=== PATIENT | male | born 2000 | race African-American/Black ===

== ENCOUNTER 2021-05-07 01:56 | Emergency (ER) | payer SELFPAY ==
[~2021-05-07] VITALS: Ht 175.3 cm; Wt 84.1 kg
[2021-05-07 02:16] VITALS: BP 128/69
--- NOTE | 2021-05-07 02:24 | PHYS DOC ---
General Adult EDM: Chief Complaint: LOWER EXTREMITY SWELLING HPI: HPI: 21-year-old male presents via EMS with leg sores. The patient feels like he is getting bit by flies a lot. He is homeless. He tells me that he has not showered in a while and has not been taking care of his legs. He has known eczema. He had infections at one point but they are getting better. He is not taking any medications at this time. He has requested to take a shower and to get some clothes. Review of Systems: Review of Systems: Constitutional: Denies fever or chills Eyes: Denies change in visual acuity HENT: Denies nasal congestion or sore throat Respiratory: Denies cough or shortness of breath Cardiovascular: Denies chest pain or edema GI: Denies abdominal pain, nausea, vomiting, bloody stools or diarrhea : Denies dysuria Musculoskeletal: Denies back pain or joint pain Integument: Insect bites lower legs Neurologic: Denies headache, focal weakness or sensory changes Endocrine: Denies polyuria or polydipsia Lymphatic: Denies swollen glands Psychiatric: Denies depression or anxiety Allergies: Allergies: Allergies Coded Allergies Type Severity Reaction Last Updated Verified No Known Drug Allergies 05/07/21 No Physical Exam: PE: Constitutional: Well developed, well nourished, disheveled, unkept, no acute distress, non-toxic appearance. [] HENT: Normocephalic, atraumatic, bilateral external ears normal, oropharynx moist, no oral exudates, nose normal. [] Eyes: PERRLA, EOMI, conjunctiva normal, no discharge. [] Neck: Normal range of motion, no tenderness, supple, no stridor. [] Cardiovascular:Heart rate regular rhythm, no murmur [] Lungs & Thorax: Bilateral breath sounds clear to auscultation [] Abdomen: Bowel sounds normal, soft, no tenderness, no masses, no pulsatile masses. [] Skin: Many insect bites of the bilateral lower extremities in various stages of healing. No obvious signs of cellulitis. Diffuse severe eczema of the bilateral lower extremities and feet [] Back: No tenderness, no CVA tenderness. [] Extremities: No tenderness, no cyanosis, no clubbing, ROM intact, bilateral nonpitting edema of the lower legs and feet. [] Neurologic: Alert and oriented X 3, normal motor function, normal sensory function, no focal deficits noted. [] Psychologic: Affect normal, judgement normal, mood normal. [] EKG: EKG: [] Radiology/Procedures: Radiology/Procedures: [] Heart Score: C/O Chest Pain: N/A Risk Factors: Risk Factors: DM, Current or recent (<one month) smoker, HTN, HLP, family history of CAD, obesity. Risk Scores: Score 0 - 3: 2.5% MACE over next 6 weeks - Discharge Home Score 4 - 6: 20.3% MACE over next 6 weeks - Admit for Clinical Observation Score 7 - 10: 72.7% MACE over next 6 weeks - Early Invasive Strategies Course & Med Decision Making: Course & Med Decision Making Pertinent Labs and Imaging studies reviewed. (See chart for details) I am not sure we have the ability to let the patient take a shower. We will give him food, close, water. I do not see any indication for antibiotics at this time. He is stable for discharge. [] Dragon Disclaimer: Dragrabia Disclaimer: This electronic medical record was generated, in whole or in part, using a voice recognition dictation system. Departure Departure: Impression: Primary Impression: Insect bite Qualified Codes: S80.869A - Insect bite (nonvenomous), unspecified lower leg, initial encounter; W57.XXXA - Bitten or stung by nonvenomous insect and other nonvenomous arthropods, initial encounter Additional Impression: Eczema Qualified Codes: L30.9 - Dermatitis, unspecified Disposition: 01 HOME / SELF CARE / HOMELESS Condition: STABLE Referrals: PCP,NO (PCP) Patient Instructions: Insect Bite, [id number] JENNIFER MASTERS DO May 07, 2021 02:24
== END 2021-05-07 03:54 | disposition home or self-care (01) ==
LOC: ER 01:56
DX: S80.862A Insect bite (nonvenomous), left lower leg, initial encounter (principal); S80.861A Insect bite (nonvenomous), right lower leg, initial encounter; L30.9 Dermatitis, unspecified; W57.XXXA Bitten or stung by nonvenomous insect and other nonvenomous arthropods, initial encounter; Y93.89 Activity, other specified; Y92.89 Other specified places as the place of occurrence of the external cause; Y99.8 Other external cause status
CPT/HCPCS: 99283

== ENCOUNTER 2021-07-14 05:58 | Emergency (ER) | payer SELFPAY ==
[~2021-07-14] VITALS: Ht 175.3 cm; Wt 83.6 kg
--- NOTE | 2021-07-14 06:22 | PHYS DOC ---
Past History Past Surgical History: Other Additional Past Surgical Histo: EYE SX (JENNIFER MASTERS DO) Alcohol Use: None (JENNIFER MASTERS DO) General Adult EDM: Chief Complaint: ALTERED MENTAL STATUS HPI: HPI: 21-year-old male presents via EMS with concern for psychiatric condition. The patient was found by police to [place] the [place] in dark clothing. The police thought the patient may have psychiatric issues and requested he be brought to the emergency room for evaluation. The patient tells me that he is feeling well. He was out walking with no particular intention. He states that he was compelled to come back to [place]. He is homeless. He has been living in the [place] area. He denies alcohol or drug use. He denies homicidal or suicidal ideation. No fever or chills. (JENNIFER MASTERS DO) Review of Systems: Review of Systems: Constitutional: Denies fever or chills Eyes: Denies change in visual acuity HENT: Denies nasal congestion or sore throat Respiratory: Denies cough or shortness of breath Cardiovascular: Denies chest pain or edema GI: Denies abdominal pain, nausea, vomiting, bloody stools or diarrhea : Denies dysuria Musculoskeletal: Denies back pain or joint pain Integument: Denies rash Neurologic: Denies headache, focal weakness or sensory changes Endocrine: Denies polyuria or polydipsia Lymphatic: Denies swollen glands Psychiatric: Denies depression or anxiety (JENNIFER MASTERS DO) Current Medications: Current Meds: Current Medications Medications (Trade) Dose Ordered Sig/Linda Start Time Stop Time Status Last Admin Dose Admin Sodium Chloride 1,000 ml @ 1,000 mls/hr 1X ONCE 07/14/21 06:30 07/14/21 07:29 (JENNIFER MASTERS DO) Allergies: Allergies: Allergies Coded Allergies Type Severity Reaction Last Updated Verified No Known Drug Allergies 05/07/21 No (JENNIFER MASTERS DO) Physical Exam: PE: Constitutional: Well developed, well nourished, no acute distress, non-toxic appearance. [] HENT: Normocephalic, atraumatic, bilateral external ears normal, oropharynx mo ist, no oral exudates, nose normal. [] Eyes: PERRLA, EOMI, conjunctiva normal, no discharge. [] Neck: Normal range of motion, no tenderness, supple, no stridor. [] Cardiovascular: Heart rate regular rhythm, no murmur [] Lungs & Thorax: Bilateral breath sounds clear to auscultation [] Abdomen: Bowel sounds normal, soft, no tenderness, no masses, no pulsatile masses. [] Skin: Warm, dry, no erythema, eczema [] Back: No tenderness, no CVA tenderness. [] Extremities: No tenderness, no cyanosis, no clubbing, ROM intact, no edema. [] Neurologic: Alert and oriented X 3, normal motor function, normal sensory function, no focal deficits noted. [] Psychologic: Affect normal, compulsions, mood normal. [] (JENNIFER MASTERS DO) EKG: EKG: [] (JENNIFER MASTERS DO) Radiology/Procedures: Radiology/Procedures: [] (JENNIFER MASTERS DO) Heart Score: C/O Chest Pain: N/A Risk Factors: Risk Factors: DM, Current or recent (<one month) smoker, HTN, HLP, family history of CAD, obesity. Risk Scores: Score 0 - 3: 2.5% MACE over next 6 weeks - Discharge Home Score 4 - 6: 20.3% MACE over next 6 weeks - Admit for Clinical Observation Score 7 - 10: 72.7% MACE over next 6 weeks - Early Invasive Strategies (JENNIFER MASTERS DO) Course & Med Decision Making: Course & Med Decision Making Pertinent Labs and Imaging studies reviewed. (See chart for details) The patient is medically stable for behavioral health evaluation. The behavioral health team has evaluated the patient and determined that he would be nefit from inpatient treatment. Placement is pending at this time. There have been no significant complications throughout my shift. I am signing the patient out to the nickel plant operator at 1800. [] (JENNIFER MASTERS DO) Course & Med Decision Making See Dr. Masters chart for details prior shift change. Pt. sleeping most of night. Impression: 1. Psychosis 2. Anxiety 3. Schizophrenia Pt.has not yet had nasal swab. Pt. continue s to refuse. Pt. not accepted for placement until COVID status determined. (JURGEN ROSALES MD) Course & Med Decision Making Concern for uncontrolled schizophrenia, pending inpatient psych. Potassium replaced in ED and Covid test is negative. Patient is medically cleared for inpatient treatment. No issues during my shift. Due to shift change patient was signed out to Dr. Holman for further evaluation and disposition. 07/[address] Lewis, psychiatry at [facility]. Pt accepted for inpt psych. No issues during my shift. Patient stable at time of transfer. (ALTAGRACIA CALLAHAN DO) Dragon Disclaimer: Dragon Disclaimer: This electronic medical record was generated, in whole or in part, using a voice recognition dictation system. (JENNIFER MASTERS DO) Departure Departure: Impression: Primary Impression: Schizophrenia Disposition: [address] [place] [address] ([facility], Dr. Lewis) Condition: STABLE Referrals: PCP,NO (PCP) Dragon Disclaimer This chart was dictated in whole or in part using Voice Recognition software in a busy, high-work load, and often noisy Emergency Department environment. It may contain unintended and wholly unrecognized errors or omissions. (JURGEN ROSALES MD) Dragon Disclaimer This chart was dictated in whole or in part using Voice Recognition software in a busy, high-work load, and often noisy Emergency Department environment. It may contain unintended and wholly unrecognized errors or omissions. (JURGEN ROSALES MD) JENNIFER MASTERS DO Jul 14, 2021 06:22 JURGEN ROSALES MD Jul 15, 2021 04:46 ALTAGRACIA CALLAHAN DO Jul 15, 2021 18:10
[2021-07-14] MEDS ORDERED: IV NORMAL SALINE 1,000ML 1,000 ML IV ONE (06:30)
[2021-07-14 06:51] LABS: BASO % 1 % (0-3); EOS # 0.4 x10^3/uL (0.0-0.7); EOS % 6 % (0-3); HEMATOCRIT 38.1 % (39.0-53.0); HEMOGLOBIN 12.5 g/dL (13.0-17.5); LYMPH # 1.5 x10^3/uL (1.0-4.8); LYMPH % 25 % (24-48); MEAN CORPUSCULAR HEMOGLOBIN 26 pg (25-35); MEAN CORPUSCULAR HGB CONC 33 g/dL (31-37); MEAN CORPUSCULAR VOLUME 80 fL (79-100); MONO # 0.4 x10^3/uL (0.0-1.1); MONO % 7 % (0-9); NEUT # 3.7 x10^3uL (1.8-7.7); NEUT % 61 % (31-73); PLATELET COUNT 244 x10^3/uL (140-400); RED BLOOD COUNT 4.77 x10^6/uL (4.30-5.70); RED CELL DISTRIBUTION WIDTH 16.6 % (11.5-14.5)
[2021-07-14 07:11] LABS: CALCIUM 8.6 mg/dL (8.5-10.1); CREATININE 0.9 mg/dL (0.7-1.3); GFR 127.7; POTASSIUM 3.2 mmol/L (3.5-5.1)
[2021-07-14 07:16] LABS: AMPHETAMINE/METHAMPHETAMINE NEG (NEG); BARBITURATES NEG (NEG); BENZODIAZEPINES NEG (NEG); CANNABINOIDS NEG (NEG); COCAINE NEG (NEG); METHADONE NEG (NEG); OPIATES NEG (NEG); PHENCYCLIDINE NEG (NEG)
[2021-07-14 07:17] LABS: ALBUMIN 3.1 g/dL (3.4-5.0); ALBUMIN/GLOBULIN RATIO 0.8 (1.0-1.7); TOTAL BILIRUBIN 0.5 mg/dL (0.2-1.0)
[2021-07-14 07:18] LABS: BACTERIA,URINE 0 /HPF (0-FEW); BILIRUBIN,URINE NEG (NEG); CLARITY,URINE CLEAR; COLOR,URINE YELLOW; GLUCOSE,URINE NEG (NEG); NITRITE,URINE NEG (NEG); RBC,URINE OCC /HPF (0-2); SQUAMOUS EPITHELIAL CELL,UR OCC /LPF; WBC,URINE OCC /HPF (0-4)
[2021-07-15] MEDS ORDERED: POTASSIUM CHLORIDE 20 MEQ TABLET.ER. PO ONE ×2 (07:00→11:37)
[2021-07-16 12:00] VITALS: BP 101/65
== END 2021-07-16 16:55 ==
LOC: ER 05:58
DX: F29 Unspecified psychosis not due to a substance or known physiological condition (principal); F20.9 Schizophrenia, unspecified; F41.9 Anxiety disorder, unspecified; Z20.822 Contact with and (suspected) exposure to COVID-19
CPT/HCPCS: 36415; 80053; 80307; 81001; 85025; 87426; 96360; 99285; J7030; U0003

== ENCOUNTER 2021-10-08 22:26 | Emergency (ER) | payer SELFPAY ==
[~2021-10-08] VITALS: Ht 175.3 cm; Wt 83.6 kg
[2021-10-08 22:40] VITALS: BP 148/90
--- NOTE | 2021-10-08 22:58 | PHYS DOC ---
Past History Additional Past Medical Histor: eczema Past Surgical History: Other Additional Past Surgical Histo: EYE SX Alcohol Use: None General Adult EDM: Chief Complaint: LOWER EXT PAIN HPI: HPI: 21-year-old male presents via EMS with bilateral foot pain. The patient was reported to be homeless and sleeping outside. It is 7 degrees outside. Someone saw him and called 911. EMS brought him to the emergency department. Patient tells me that his feet hurt and he has been outside in the cold all day. His shoes and socks are wet. He states that he still has feeling throughout his feet. He has a chronic skin condition but is unsure what it is. Review of Systems: Review of Systems: Constitutional: Denies fever or chills Eyes: Denies change in visual acuity HENT: Denies nasal congestion or sore throat Respiratory: Denies cough or shortness of breath Cardiovascular: Denies chest pain or edema GI: Denies abdominal pain, nausea, vomiting, bloody stools or diarrhea : Denies dysuria Musculoskeletal: Denies back pain or joint pain Integument: Right very cold skin of the bilateral feet. Neurologic: Denies headache, focal weakness or sensory changes Endocrine: Denies polyuria or polydipsia Lymphatic: Denies swollen glands Psychiatric: Denies depression or anxiety Allergies: Allergies: Allergies Coded Allergies Type Severity Reaction Last Updated Verified banana Allergy Unknown 07/14/21 Yes nut - unspecified Allergy Unknown 07/14/21 Yes Physical Exam: PE: Constitutional: Well developed, well nourished, no acute distress, non-toxic appearance. [] HENT: Normocephalic, atraumatic, bilateral external ears normal, oropharynx moist, no oral exudates, nose normal. [] Eyes: PERRLA, EOMI, conjunctiva normal, no discharge. [] Neck: Normal range of motion, no tenderness, supple, no stridor. [] Cardiovascular:Heart rate regular rhythm, no murmur [] Lungs & Thorax: Bilateral breath sounds clear to auscultation [] Abdomen: Bowel sounds normal, soft, no tenderness, no masses, no pulsatile masses. [] Skin: Wet white areas of skin along the fifth metatarsals bilaterally, wet white skin at the base of the first phalanx bilaterally. Dry flaky skin all over there appears to be severe eczema. [] Back: No tenderness, no CVA tenderness. [] Extremities: No tenderness, no cyanosis, no clubbing, ROM intact, no edema. [] Neurologic: Alert and oriented X 3, normal motor function, normal sensory function, no focal deficits noted. [] Psychologic: Affect normal, judgement normal, mood normal. [] Current Patient Data: Vital Signs: Vital Signs Date Time Temp Pulse Resp B/P (MAP) Pulse Ox O2 Delivery O2 Flow Rate FiO2 10/08/21 22:40 98.6 113 16 148/90 (109) 95 Room Air EKG: EKG: [] Radiology/Procedures: Radiology/Procedures: [] Heart Score: C/O Chest Pain: N/A Risk Factors: Risk Factors: DM, Current or recent (<one month) smoker, HTN, HLP, family history of CAD, obesity. Risk Scores: Score 0 - 3: 2.5% MACE over next 6 weeks - Discharge Home Score 4 - 6: 20.3% MACE over next 6 weeks - Admit for Clinical Observation Score 7 - 10: 72.7% MACE over next 6 weeks - Early Invasive Strategies Course & Med Decision Making: Course & Med Decision Making Pertinent Labs and Imaging studies reviewed. (See chart for details) The patient appears to have sections of his toes that look like "trench foot. They are cold to the touch but did not appear frozen. We are rapidly rewarming and drying. After rewarming, the patient's skin returned to a pink color. There are couple small areas that appear to have grade 1 frostbite. I have told the patient he cannot be outside because it is too cold. If he does not have a place to go he will need to go to the homeless custodial because it is just too dangerous to be outside. We do not have appropriate resources for the patient such as dry clothing, cold weather socks, shower etc. We will send him to the custodial which we have confirmed will accept him. [] Dragon Disclaimer: Breanne Disclaimer: This electronic medical record was generated, in whole or in part, using a voice recognition dictation system. Departure Departure: Impression: Primary Impression: Frostbite of both lower extremities Disposition: HOME / SELF CARE / HOMELESS Condition: IMPROVED Referrals: PCPBALTA (PCP) Patient Instructions: Jude, [id number] JENNIFER MASTERS DO Oct 08, 2021 22:58
== END 2021-10-09 01:16 | disposition home or self-care (01) ==
LOC: ER 22:26
DX: T33.822A Superficial frostbite of left foot, initial encounter (principal); T33.821A Superficial frostbite of right foot, initial encounter; Z59.00 Homelessness unspecified; X31.XXXA Exposure to excessive natural cold, initial encounter; Y93.89 Activity, other specified; Y92.89 Other specified places as the place of occurrence of the external cause; Y99.8 Other external cause status; Z91.018 Allergy to other foods
CPT/HCPCS: 99283